=== PATIENT | female | born 1950 | race Caucasian/White ===

== ENCOUNTER → 2017-04-30 | Outpatient (CLI) | payer BC ==
--- NOTE | 2017-04-30 13:17 | Diagnostic Imaging Report ---
EXAM: DXA BONE DENSITY INDICATIONS: OSTEOPOROSIS COMPARISON: Patients [facility], DX, BONE DXA DUAL ENERGY, 02/01/2015, 12:30. FINDINGS: Proximal left femur total bone mineral density (BMD) (g/cm2):0.619 Femur T-score (standard deviation relative to young adult mean BMD): -2.6 Femur Z-score (standard deviation relative to age-matched control group):-1.3 Proximal left femur neck bone mineral density (BMD) (g/cm2):0.604 Femur T-score (standard deviation relative to young adult mean BMD): -2.2 Femur Z-score (standard deviation relative to age-matched control group):-0.5 Lumbar bone mineral density (BMD) (g/cm2):0.786 Lumbar T-score (standard deviation relative to young adult mean BMD): -2.4 Lumbar Z-score (standard deviation relative to age-matched control group):-0.4 Change since prior exam (%): Femur:-1.8. Spine:-3.2 CONCLUSION: 1. Bone mineral density in the left femur is classified as osteoporosis. Fracture risk is high. 2. Bone mineral density in the spine is classified as osteopenia. Fracture risk is increased. World Health Organization Classification: *The Z-score is provided for informational purposes. The T-score is preferable for clinical decisions. When comparing exams, a change of >4% is considered statistically significant. SUGGESTED RECOMMENDATIONS: Normal \T\ Osteopenia:Consideration should be given to use of calcium supplementation, daily multiple vitamins and adequate exercise, as preventive measures against osteoporosis, if clinically indicated. Osteoporosis \T\ Severe Osteoporosis:In addition to the above, consideration should be given to medical therapy against osteoporosis, if clinically indicated. Ashvin Noguera M.D. Dictated by: Ashvin Noguera M.D. on 04/30/2017 at 13:17 Electronically approved by: Ashvin Noguera M.D. on 04/30/2017 at 13:17
--- NOTE | 2017-05-10 18:11 | Diagnostic Imaging Report ---
#[id number] - M[facility]CR[facility] #BILATERAL DIGITAL SCREENING MAMMOGRAM WITH CAD: 04/30/2017 CLINICAL: Routine screening. Comparison is made to exam dated: 02/01/2015 mammogram - [facility]. Current study contains 4 films. The tissue of both breasts is predominantly fatty. Current study was also evaluated with a Computer Aided Detection (CAD) system. There are benign calcifications in both breasts. There is a mole marker on the left breast. No significant masses, calcifications, or other findings are seen in either breast. There has been no significant interval change. IMPRESSION: BENIGN There is no mammographic evidence of malignancy. A 1 year screening mammogram is recommended. The patient will be notified by letter of the results. Gordon rojas/julianna:05/09/2017 11:53:03 [place] [employer]: Pearl KESSLER(Aiyana)(M), [facility] letter sent: Compared to Prior B9 Mammogram BI-RADS: 2 Benign
== END ==
LOC: MAMMO 10:43
PROVIDERS: ATTEND Obstetrics & Gynecology
DX: Z12.31 Encounter for screening mammogram for malignant neoplasm of breast (principal); Z13.820 Encounter for screening for osteoporosis; M81.0 Age-related osteoporosis without current pathological fracture; M85.88 Other specified disorders of bone density and structure, other site
CPT/HCPCS: 77080

== ENCOUNTER → 2017-06-13 | Outpatient (CLI) | payer BC ==
--- NOTE | 2017-06-13 11:36 | Diagnostic Imaging Report ---
PROCEDURE: Frontal and lateral views of the chest. COMPARISON: Chest 2 views 04/29/2013. INDICATIONS: COUGH, COPD FINDINGS: Lines/tubes: None. Lungs: The lungs are well inflated and clear. There is no evidence of pneumonia or pulmonary edema. Pleura: There is no pleural effusion or pneumothorax. Heart and mediastinum: The heart and the mediastinum are normal. Atherosclerotic calcifications. Bones: No acute bony abnormality. Degenerative changes of the thoracic spine. IMPRESSION: No acute radiographic abnormality. Dictated by: Castillo Mckeon M.D. on 06/13/2017 at 11:37 Electronically approved by: Castillo Mckeon M.D. on 06/13/2017 at 11:37
== END ==
LOC: RAD 11:07
PROVIDERS: ATTEND Internal Medicine
DX: R05 Cough (principal)
CPT/HCPCS: 71046

== ENCOUNTER → 2018-10-16 | Outpatient (CLI) | payer BC ==
--- NOTE | 2018-10-17 15:55 | Diagnostic Imaging Report ---
Exam: Bone mineral density study. History: Osteoporosis, pain Comparison: None available. Discussion: Evaluation of the left hip and lumbar spine was performed. The study is technically adequate. The patient's fracture risk is compared to an age-matched control. The patient denies prior surgery/fracture of the spine, hips or forearm. Left hip femoral neck bone mineral density: 0.6 g/cm2, T-score is -2.2, Z-score is -0.4. Left hip total bone mineral density: 0.6 g/cm2, T-score is -2.6, Z-score is -1.2. Lumbar spine total bone mineral density: 0.9 g/cm2, T-score is -1.7, Z-score is 0.4. Impression: Bone mineralization by WHO Classification is osteoporosis, the fracture risk is high. Signed by: Dr. Barry Powers D.O., M.M.M. on 10/17/2018 3:51 PM
== END ==
LOC: DX 14:15
PROVIDERS: ATTEND Internal Medicine
DX: M79.605 Pain in left leg (principal); M79.604 Pain in right leg; M81.0 Age-related osteoporosis without current pathological fracture
CPT/HCPCS: 77080; 93925

== ENCOUNTER → 2019-12-30 | Outpatient (CLI) | payer BC ==
--- NOTE | 2019-12-30 16:06 | Diagnostic Imaging Report ---
Exam: Pelvic ultrasound. History: Pelvic pain Comparison: None Findings: Transabdominal evaluation of the pelvis. No transvaginal evaluation was requested. The uterus is anteverted in position, measuring 5.7 x 2.4 x 4.3cm. No uterine masses identified. The endometrial stripe and the ovaries are not well seen due to overlying bowel gas. The patient reports history of nephrectomy but is uncertain of the laterality. Bilateral ureteral jets visualized. Prevoid bladder volume estimate of 116 cc. Postvoid bladder volume of 3 cc. Impression: Unremarkable exam with limitations as above. Signed by: Saravanan Matta MD on 12/30/2019 4:03 PM
== END ==
LOC: US 12:38
PROVIDERS: ATTEND Internal Medicine
DX: R10.2 Pelvic and perineal pain (principal)
CPT/HCPCS: 76856

== ENCOUNTER → 2022-07-17 | Outpatient (CLI) | payer BC | LOC: MAMMO 10:49 | PROVIDERS: ATTEND Internal Medicine | DX: Z12.31 Encounter for screening mammogram for malignant neoplasm of breast (principal) | CPT/HCPCS: 77067 ==